=== PATIENT | female | born 1965 | race African-American/Black ===

== ENCOUNTER 2019-08-07 16:42 | Emergency (ER) | payer MEDICAID ==
[~2019-08-07] VITALS: Ht 177.8 cm; Wt 94.8 kg
[2019-08-07 16:54] VITALS: Ht 177.8 cm; Wt 94.8 kg
[2019-08-07 19:02] LABS: BASOPHIL % 0.1 % (0-2)
[2019-08-07 19:09] LABS: CALCIUM 8.5 mg/dL (8.5-10.1); CARBON DIOXIDE 28.5 mmol/L (21-32); CHLORIDE SERUM 102 mmol/L (98-107); CREATININE SERUM 0.7 mg/dL (0.6-1.0); GFR1 > 60 mL/min; GLUCOSE SERUM 98 mg/dL (74-106); POTASSIUM SERUM 4.3 mmol/L (3.5-5.1); SODIUM SERUM 138 mmol/L (136-145)
[2019-08-07 19:10] LABS: PLATELET COUNT 556 x10^3mcL (130-400); RED CELL DISTRIBUTION WIDTH 19.5 % (11.5-14.5)
[2019-08-07 19:14] LABS: ALBUMIN 3.7 g/dL (3.4-5.0); ALKALINE PHOSPHATASE 118 U/L (46-116); ALT/SGPT 20 U/L (14-59); AST/SGOT 20 U/L (15-37); BILIRUBIN TOTAL 0.14 mg/dL (0.20-1.00); HDL CHOLESTEROL 47 mg/dL (40-60); TOTAL PROTEIN, SERUM 8.2 g/dL (6.4-8.2); TRIGLYCERIDES 64 mg/dL (<150)
[2019-08-07 19:19] LABS: CHOLESTEROL 112 mg/dL (<200); CHOLESTEROL/HDL RATIO 2.4
[2019-08-07 19:24] LABS: FREE T4 0.83 ng/dL (0.76-1.46); FREE THYROXINE INDEX 1.9 ug/dL (1.4-4.5)
[2019-08-07 19:30] LABS: T3 TOTAL 1.14 ng/mL
[2019-08-07 20:20] VITALS: BP 139/94
== END 2019-08-07 20:20 | disposition home or self-care (01) ==
LOC: ED 16:42
PROVIDERS: Specialist
DX: R06.02 Shortness of breath (principal); F41.9 Anxiety disorder, unspecified; F17.210 Nicotine dependence, cigarettes, uncomplicated; Z71.6 Tobacco abuse counseling
CPT/HCPCS: 36415; 83880; 84439; 99406